=== PATIENT | female | born 1945 | race Caucasian/White ===

== ENCOUNTER 2019-01-11 14:31 | Emergency (ER) | payer MEDICARE, OTHER ==
[~2019-01-11] VITALS: Ht 162.6 cm; Wt 102.5 kg
[~2019-01-11 14:31] MED LIST: ARIP5TAB49 PO; ASPI-1265 PO; CHOL400C8 PO; CYAN-19 PO; DULO60CA34 PO; HYDR-3965 PO; LANS30CA56 PO; LYR75C PO; PRAM0.5T12 PO; TIZA4CAP6 PO
[2019-01-11 15:35] LABS: BASOPHILS # (AUTO) 0.1 X10'3 (0-0.2); BASOPHILS % (AUTO) 0.7 % (0-1); EOSINOPHILS # (AUTO) 0.2 X10'3 (0-0.9); EOSINOPHILS % (AUTO) 2.2 % (0-6); HEMATOCRIT 32.1 % (35.0-45.0); LYMPHOCYTES # (AUTO) 1.9 X10'3 (1.1-4.8); LYMPHOCYTES % (AUTO) 24.7 % (21-51); MEAN CORPUSCULAR HEMOGLOBIN 21.9 PG (27.0-31.0); MEAN CORPUSCULAR HGB CONC 31.1 g/dL (33.0-36.5); MEAN CORPUSCULAR VOLUME 70.3 FL (78-98); MEAN PLATELET VOLUME 7.7 FL (7.4-10.4); MONOCYTES # (AUTO) 0.8 X10'3 (0-0.9); MONOCYTES % (AUTO) 9.8 % (2-12); NEUTROPHILS # (AUTO) 4.8 X10'3 (1.8-7.7); NEUTROPHILS % (AUTO) 62.6 % (42-75); PLATELET COUNT 328 X10'3 (140-440); RED BLOOD COUNT 4.57 X10'6 (4.20-5.60); WHITE BLOOD COUNT 7.7 X10'3 (4.5-11.0)
[2019-01-11 15:38] LABS: PARTIAL THROMBOPLASTIN TIME 26 SECONDS (22-32); PROTHROMBIN TIME 10.4 SECONDS (9.0-12.0)
[2019-01-11 15:40] LABS: ALANINE AMINOTRANSFERASE 21 U/L (12-78); ALBUMIN 3.9 G/DL (3.4-5.0); ALKALINE PHOSPHATASE 87 IU/L (46-116); ANION GAP 10 (8-16); ASPARTATE AMINO TRANSFERASE 11 U/L (10-37); BILIRUBIN,TOTAL 0.8 MG/DL (0.1-1.0); BLOOD UREA NITROGEN 21 MG/DL (7-18); BUN/CREATININE RATIO 19.1 (6.6-38.0); CALCIUM 9.4 MG/DL (8.5-10.1); CHLORIDE 105 MMOL/L (99-107); GLUCOSE 87 MG/DL (70-104); POTASSIUM 4.1 MMOL/L (3.5-5.1); SODIUM 141 MMOL/L (135-145); TOTAL CARBON DIOXIDE 25.9 MMOL/L (24-32); TOTAL PROTEIN 7.9 G/DL (6.4-8.2); eGFR 48 ML/MIN
[2019-01-11 15:50] VITALS: BP 97/44
[2019-01-11] MEDS ORDERED: ipratropium/albuterol 3ml nebule NEB STA (15:54)
[2019-01-11] MEDS ORDERED: ALBU18HF2 INH (16:30)
[2019-01-11] MEDS ORDERED: PRED20TA PO (16:30)
== END 2019-01-11 17:03 | disposition home or self-care (01) ==
LOC: ER 14:31
DX: J06.9 Acute upper respiratory infection, unspecified (principal); G89.29 Other chronic pain; M19.90 Unspecified osteoarthritis, unspecified site; F17.200 Nicotine dependence, unspecified, uncomplicated; Z90.710 Acquired absence of both cervix and uterus; Z79.82 Long term (current) use of aspirin; Z79.899 Other long term (current) drug therapy
CPT/HCPCS: 36415; 71045; 80053; 84484; 85025; 85610; 85730; 93005; 94640; 94760; 99284

== ENCOUNTER 2019-04-17 19:02 | Inpatient (IN) | payer MEDICARE, OTHER ==
[~2019-04-17] VITALS: Ht 162.6 cm; Wt 100.5 kg
[~2019-04-17 19:02] MED LIST changes: +ALBU18HF2 INH
[2019-04-17 19:38] LABS: BASOPHILS # (AUTO) 0.1 X10'3 (0-0.2); BASOPHILS % (AUTO) 0.8 % (0-1); EOSINOPHILS # (AUTO) 0.1 X10'3 (0-0.9); EOSINOPHILS % (AUTO) 1.3 % (0-6); HEMATOCRIT 22.9 % (35.0-45.0); LYMPHOCYTES # (AUTO) 2.1 X10'3 (1.1-4.8); LYMPHOCYTES % (AUTO) 24.2 % (21-51); MEAN CORPUSCULAR HEMOGLOBIN 18.5 PG (27.0-31.0); MEAN CORPUSCULAR HGB CONC 29.9 g/dL (33.0-36.5); MEAN CORPUSCULAR VOLUME 61.8 FL (78-98); MEAN PLATELET VOLUME 7.4 FL (7.4-10.4); MONOCYTES # (AUTO) 0.9 X10'3 (0-0.9); MONOCYTES % (AUTO) 10.6 % (2-12); NEUTROPHILS # (AUTO) 5.4 X10'3 (1.8-7.7); NEUTROPHILS % (AUTO) 63.1 % (42-75); PLATELET COUNT 402 X10'3 (140-440); RED BLOOD COUNT 3.71 X10'6 (4.20-5.60); RED CELL DISTRIBUTION WIDTH 17.7 % (11.5-14.5); WHITE BLOOD COUNT 8.6 X10'3 (4.5-11.0)
[2019-04-17 19:58] LABS: ALANINE AMINOTRANSFERASE 21 U/L (12-78); ALBUMIN 3.7 G/DL (3.4-5.0); ALKALINE PHOSPHATASE 84 IU/L (46-116); ANION GAP 10 (8-16); ASPARTATE AMINO TRANSFERASE 19 U/L (10-37); BILIRUBIN,TOTAL 0.8 MG/DL (0.1-1.0); BLOOD UREA NITROGEN 31 MG/DL (7-18); CALCIUM 9.2 MG/DL (8.5-10.1); CHLORIDE 104 MMOL/L (99-107); CREATININE 1.55 MG/DL (0.40-0.90); GLUCOSE 102 MG/DL (70-104); POTASSIUM 4.2 MMOL/L (3.5-5.1); SODIUM 137 MMOL/L (135-145); TOTAL CARBON DIOXIDE 23.1 MMOL/L (24-32); TOTAL PROTEIN 7.4 G/DL (6.4-8.2); eGFR 33 ML/MIN
[2019-04-17 19:59] LABS: PARTIAL THROMBOPLASTIN TIME 24 SECONDS (22-32)
--- NOTE | 2019-04-17 20:00 | NUR ---
dr wilkins notified of pt's h&h of 6.9 and 22.
[2019-04-17] MEDS ORDERED: nitroGLYCERIN 0.4mg/hour patch TD ONE (20:20)
[2019-04-17] MEDS ORDERED: aspirin 81mg tab.chew PO ONE (20:20)
[2019-04-17 21:04] LABS: PLATELET ESTIMATE NORMAL
[2019-04-17 21:05] LABS: ANISOCYTOSIS 3+; HYPOCHROMASIA 1+; MICROCYTOSIS 2+
[2019-04-17 21:06] LABS: POLYCHROMASIA FEW
[2019-04-17 21:07] LABS: ELLIPTOCYTES 1+
[2019-04-17] MEDS ORDERED: normal saline 1000ml 1,000 ML IV SCH (21:13)
[2019-04-17] MEDS ORDERED: magnesium hydroxide 30ml (MOM) UD suspension PO PRN (21:15)
[2019-04-17] MEDS ORDERED: acetaminophen 325mg tablet PO PRN (21:15)
[2019-04-17] MEDS ORDERED: ondansetron/PF 4mg/2ml inj IV PRN (21:15)
[2019-04-17] MEDS ORDERED: mag hydrox/Alum hydrox/simeth 30ml oral suspension PO PRN (21:15)
--- NOTE | 2019-04-17 21:15 | NUR ---
Received report from Evan RN in ED, will assess patient when she arrives.
[2019-04-17] MEDS ORDERED: FLUO40CA10 PO (21:16)
[2019-04-17] MEDS ORDERED: DEXL60CA3 PO (21:20)
[2019-04-17] MEDS ORDERED: MELO15TA13 PO (21:20)
[2019-04-17] MEDS ORDERED: CARI3CAP PO (21:20)
[2019-04-17] MEDS ORDERED: ALBU18HF2 INH (21:21)
[2019-04-17 21:30] VITALS: BP 140/61
[2019-04-17 21:35] LABS: HEMOGLOBIN A1C 5.4 % (4.5-6.2)
[2019-04-17 22:43] VITALS: BP 144/61
[2019-04-17 22:58] VITALS: BP 115/89
[2019-04-17 23:58] VITALS: BP 129/52
[2019-04-18] VITALS (11 sets, daily range): BP systolic 115–150; BP diastolic 48–89
[2019-04-18] MEDS ORDERED: albuterol 2.5 MG/3 ML nebule NEB PRN
[2019-04-18] MEDS ORDERED: temazepam 15mg capsule PO PRN (02:55)
--- NOTE | 2019-04-18 03:02 | NUR ---
Patient stating severe pain from restless leg syndrome, States takes norco at home. Notified Dr. Nicolas, received order for [place] 5/325 mg 1 tab by mouth every 4 hours as needed for pain. Additionally requested order for Restoril 15 mg QHS PRn for sleep for tomorrow evening. Will continue to monitor.
[2019-04-18] MEDS: HYDROcodone/acetaminophen 5mg/325mg tablet PO PRN ×2 (03:06→13:11)
--- NOTE | 2019-04-18 06:18 | NUR ---
Problems reprioritized. Patient report given, questions answered & plan of care reviewed with Darby OMER. Resting eyes closed respirations even.
--- NOTE | 2019-04-18 06:24 | NUR ---
Patient in room [facility]. I have received report from Carie OMER and had the opportunity to ask questions and assume patient care.
[2019-04-18 06:56] LABS: BASOPHILS % (AUTO) 0.8 % (0-1); EOSINOPHILS # (AUTO) 0.2 X10'3 (0-0.9); EOSINOPHILS % (AUTO) 3.8 % (0-6); HEMATOCRIT 25.8 % (35.0-45.0); LYMPHOCYTES # (AUTO) 1.8 X10'3 (1.1-4.8); LYMPHOCYTES % (AUTO) 31.3 % (21-51); MEAN CORPUSCULAR VOLUME 67.9 FL (78-98); MEAN PLATELET VOLUME 7.3 FL (7.4-10.4); MONOCYTES # (AUTO) 0.6 X10'3 (0-0.9); MONOCYTES % (AUTO) 11.3 % (2-12); NEUTROPHILS % (AUTO) 52.8 % (42-75); PLATELET COUNT 304 X10'3 (140-440); RED CELL DISTRIBUTION WIDTH 23.7 % (11.5-14.5); WHITE BLOOD COUNT 5.7 X10'3 (4.5-11.0)
[2019-04-18 07:08] LABS: ALANINE AMINOTRANSFERASE 20 U/L (12-78); ALBUMIN 3.4 G/DL (3.4-5.0); ALBUMIN/GLOBULIN RATIO 1.1 (1.1-1.5); ALKALINE PHOSPHATASE 75 IU/L (46-116); ANION GAP 6 (8-16); ASPARTATE AMINO TRANSFERASE 16 U/L (10-37); BILIRUBIN,TOTAL 1.6 MG/DL (0.1-1.0); BLOOD UREA NITROGEN 29 MG/DL (7-18); BUN/CREATININE RATIO 23.2 (6.6-38.0); CALCIUM 8.6 MG/DL (8.5-10.1); CHLORIDE 108 MMOL/L (99-107); CREATININE 1.25 MG/DL (0.40-0.90); GLUCOSE 95 MG/DL (70-104); POTASSIUM 4.1 MMOL/L (3.5-5.1); SODIUM 139 MMOL/L (135-145); TOTAL CARBON DIOXIDE 25.5 MMOL/L (24-32); TOTAL PROTEIN 6.6 G/DL (6.4-8.2); eGFR 42 ML/MIN
[2019-04-18 07:12] LABS: CHOL/HDL RATIO 3.6 (0.00-4.99); CHOLESTEROL 83 MG/DL (0-200); HDL CHOLESTEROL 23 MG/DL (35-60); LDL CHOLESTEROL 53 MG/DL (50-100); TRIGLYCERIDES 101 MG/DL (20-135)
[2019-04-18] MEDS: Cariprazine Hydrochloride (Vraylar) 3 MG CAPSULE PO SCH ×2 (08:00→13:10)
[2019-04-18] MEDS ORDERED: pregabalin 75mg capsule PO SCH (08:00)
[2019-04-18] MEDS ORDERED: aspirin 81mg tab.chew PO SCH (08:00)
[2019-04-18] MEDS ORDERED: pantoprazole 40mg Tablet.DR PO SCH (08:00)
[2019-04-18] MEDS ORDERED: FLUoxetine 20mg capsule PO SCH (08:00)
[2019-04-18 10:05] LABS: PLATELET ESTIMATE NORMAL
[2019-04-18 10:06] LABS: ANISOCYTOSIS 3+; ELLIPTOCYTES 1+; HYPOCHROMASIA 2+; MICROCYTOSIS 2+; POLYCHROMASIA 1+
[2019-04-18 10:16] LABS: HEMOGLOBIN 6.9 g/dl (12.0-16.0)
--- NOTE | 2019-04-18 12:59 | NUR ---
Malnutrition consult: Patient's current wt is stable with documented wts from previous visits. Pt currently on clear liquid diet pending PO intake. Pt documented with no edema or decrease in muscle strength. Pt currently does not meet criteria for malnutrition. Will continue to follow. Addendum: 04/18/19 at [address] Amended: Links added.
--- NOTE | 2019-04-18 13:30 | NUR ---
patient seen by DR Bush is for DC. AN hour later 1100 patient c/o chest pain dull in nature. EKG done, unremarkable. No changes observed from telemetry report. VSS. DR Bush informed still good for DC. Patient has sister visiting . DC home via private car with neice in stable condition. 1330hrs. All DC instructions given to patient and sister present.
[2019-04-18] MEDS ORDERED: pramipexole 0.25mg tablet PO SCH (21:00)
== END 2019-04-18 14:15 | disposition home or self-care (01) | DRG 812 ==
LOC: ER 19:02 → SUR 3N 22:05 → CMPBEDREQ 22:07
PROVIDERS: ADMIT Internal Medicine; ATTEND Family Medicine
PROC: 30233N1 Transfusion of Nonautologous Red Blood Cells into Peripheral Vein, Percutaneous Approach (ICD-10-PCS; principal; 2019-04-17)
PROC: 30233N1 Transfusion of Nonautologous Red Blood Cells into Peripheral Vein, Percutaneous Approach (ICD-10-PCS; 2019-04-18)
DX: D50.9 Iron deficiency anemia, unspecified (principal); G25.81 Restless legs syndrome; G47.33 Obstructive sleep apnea (adult) (pediatric); G89.29 Other chronic pain; M19.90 Unspecified osteoarthritis, unspecified site; M54.9 Dorsalgia, unspecified; I25.10 Atherosclerotic heart disease of native coronary artery without angina pectoris; J44.9 Chronic obstructive pulmonary disease, unspecified; K21.9 Gastro-esophageal reflux disease without esophagitis; N18.9 Chronic kidney disease, unspecified; Z85.820 Personal history of malignant melanoma of skin; Z87.891 Personal history of nicotine dependence; Z90.710 Acquired absence of both cervix and uterus; Z79.899 Other long term (current) drug therapy
CPT/HCPCS: 36415; 71045; 80053; 80061; 83036; 84484; 85025; 85610; 85730; 86885; 86900; 86901; 86920; 87070; 93005; 99285; G0378; J7030; P9016

== ENCOUNTER 2019-08-20 16:10 | Observation (INO) | payer MEDICARE, OTHER ==
[2019-08-20] VITALS (7 sets, daily range): BP systolic 104–124; BP diastolic 46–75
[~2019-08-20] VITALS: Ht 162.6 cm; Wt 98.2 kg
[~2019-08-20 16:10] MED LIST changes: -ARIP5TAB49 PO; +CARI3CAP PO; -CHOL400C8 PO; -CYAN-19 PO; +DEXL60CA3 PO; -DULO60CA34 PO; +FLUO40CA10 PO; -HYDR-3965 PO; -LANS30CA56 PO; +MELO15TA13 PO; -TIZA4CAP6 PO
--- NOTE | 2019-08-20 16:56 | NUR ---
RECEIVED ORDERS BY RAQUEL BORGES.
--- NOTE | 2019-08-20 16:57 | NUR ---
CALLED PTS PCP DR. ROSAS, OFFICE CLOSED, NO OPTION FOR ANSWERING SERVICE
[2019-08-20 17:43] LABS: BASOPHILS # (AUTO) 0.1 X10'3 (0-0.2); BASOPHILS % (AUTO) 0.9 % (0-1); EOSINOPHILS # (AUTO) 0.2 X10'3 (0-0.9); EOSINOPHILS % (AUTO) 2.6 % (0-6); LYMPHOCYTES # (AUTO) 1.9 X10'3 (1.1-4.8); LYMPHOCYTES % (AUTO) 25.9 % (21-51); MEAN CORPUSCULAR HEMOGLOBIN 17.7 PG (27.0-31.0); MEAN CORPUSCULAR HGB CONC 29.1 g/dL (33.0-36.5); MONOCYTES # (AUTO) 0.6 X10'3 (0-0.9); MONOCYTES % (AUTO) 8.2 % (2-12); NEUTROPHILS # (AUTO) 4.5 X10'3 (1.8-7.7); NEUTROPHILS % (AUTO) 62.4 % (42-75); PLATELET COUNT 353 X10'3 (140-440); RED CELL DISTRIBUTION WIDTH 18.4 % (11.5-14.5); WHITE BLOOD COUNT 7.2 X10'3 (4.5-11.0)
[2019-08-20 17:45] LABS: PARTIAL THROMBOPLASTIN TIME 23 SECONDS (22-32)
[2019-08-20 17:47] LABS: ALANINE AMINOTRANSFERASE 20 U/L (12-78); ALBUMIN 3.5 G/DL (3.4-5.0); ALBUMIN/GLOBULIN RATIO 0.9 (1.1-1.5); ALKALINE PHOSPHATASE 82 IU/L (46-116); ANION GAP 7 (8-16); ASPARTATE AMINO TRANSFERASE 12 U/L (10-37); BILIRUBIN,TOTAL 0.8 MG/DL (0.1-1.0); BLOOD UREA NITROGEN 19 MG/DL (7-18); BUN/CREATININE RATIO 20.4 (6.6-38.0); CHLORIDE 109 MMOL/L (99-107); CREATININE 0.93 MG/DL (0.40-0.90); GLUCOSE 84 MG/DL (70-104); HEMATOCRIT 20.2 % (35.0-45.0); HEMOGLOBIN 5.9 g/dl (12.0-16.0); POTASSIUM 4.4 MMOL/L (3.5-5.1); SODIUM 143 MMOL/L (135-145); TOTAL CARBON DIOXIDE 26.7 MMOL/L (24-32); TOTAL PROTEIN 7.2 G/DL (6.4-8.2); eGFR 59 ML/MIN
[2019-08-20 19:33] LABS: ANISOCYTOSIS 2+; HYPOCHROMASIA 1+; MICROCYTOSIS 2+; PLATELET ESTIMATE NORMAL
[2019-08-20] MEDS ORDERED: mag hydrox/Alum hydrox/simeth 30ml oral suspension PO PRN (19:40)
[2019-08-20] MEDS ORDERED: ondansetron/PF 4mg/2ml inj IV PRN (19:40)
[2019-08-20] MEDS ORDERED: magnesium hydroxide 30ml (MOM) UD suspension PO PRN (19:40)
[2019-08-20] MEDS ORDERED: acetaminophen 325mg tablet PO PRN ×2 (19:40)
[2019-08-20] MEDS ORDERED: temazepam 15mg capsule PO PRN (21:00)
[2019-08-20] MEDS ORDERED: pramipexole 0.25mg tablet PO SCH (21:00)
[2019-08-20] MEDS: pregabalin 75mg capsule PO SCH (21:39)
[2019-08-20] MEDS: iron polysaccharide complex 150mg capsule PO SCH (21:39)
--- NOTE | 2019-08-20 22:01 | NUR ---
[facility]
[2019-08-21 01:04] LABS: HEMATOCRIT 24.7 % (35.0-45.0); HEMOGLOBIN 7.8 g/dl (12.0-16.0); MEAN CORPUSCULAR HEMOGLOBIN 21.1 PG (27.0-31.0); MEAN CORPUSCULAR HGB CONC 31.4 g/dL (33.0-36.5); MEAN CORPUSCULAR VOLUME 67.1 FL (78-98); MEAN PLATELET VOLUME 7.9 FL (7.4-10.4); PLATELET COUNT 293 X10'3 (140-440); RED BLOOD COUNT 3.69 X10'6 (4.20-5.60); RED CELL DISTRIBUTION WIDTH 25.7 % (11.5-14.5); WHITE BLOOD COUNT 6.9 X10'3 (4.5-11.0)
--- NOTE | 2019-08-21 06:25 | NUR ---
PT RESTING POC IN HOSPITAL BED WITHOUT DISTRESS. LAB HERE MAG DRAW AM LABS.
[2019-08-21 06:44] LABS: BASOPHILS # (AUTO) 0.1 X10'3 (0-0.2); EOSINOPHILS # (AUTO) 0.2 X10'3 (0-0.9); EOSINOPHILS % (AUTO) 3.8 % (0-6); HEMATOCRIT 24.7 % (35.0-45.0); HEMOGLOBIN 7.8 g/dl (12.0-16.0); LYMPHOCYTES # (AUTO) 1.7 X10'3 (1.1-4.8); LYMPHOCYTES % (AUTO) 28.4 % (21-51); MEAN CORPUSCULAR HEMOGLOBIN 21.2 PG (27.0-31.0); MEAN CORPUSCULAR HGB CONC 31.4 g/dL (33.0-36.5); MEAN CORPUSCULAR VOLUME 67.5 FL (78-98); MEAN PLATELET VOLUME 7.8 FL (7.4-10.4); MONOCYTES # (AUTO) 0.6 X10'3 (0-0.9); MONOCYTES % (AUTO) 9.8 % (2-12); NEUTROPHILS # (AUTO) 3.4 X10'3 (1.8-7.7); PLATELET COUNT 292 X10'3 (140-440); RED BLOOD COUNT 3.66 X10'6 (4.20-5.60); RED CELL DISTRIBUTION WIDTH 25.1 % (11.5-14.5); WHITE BLOOD COUNT 5.9 X10'3 (4.5-11.0)
[2019-08-21 06:56] LABS: ALBUMIN 3.2 G/DL (3.4-5.0); ANION GAP 8 (8-16); BLOOD UREA NITROGEN 16 MG/DL (7-18); BUN/CREATININE RATIO 15.1 (6.6-38.0); CALCIUM 8.7 MG/DL (8.5-10.1); CHLORIDE 111 MMOL/L (99-107); CREATININE 1.06 MG/DL (0.40-0.90); GLUCOSE 95 MG/DL (70-104); POTASSIUM 4.6 MMOL/L (3.5-5.1); SODIUM 147 MMOL/L (135-145); TOTAL CARBON DIOXIDE 27.6 MMOL/L (24-32); eGFR 51 ML/MIN
[2019-08-21] MEDS ORDERED: pantoprazole 40mg Tablet.DR PO SCH (07:30)
[2019-08-21 07:34] LABS: ANISOCYTOSIS 3+; MICROCYTOSIS 2+; PLATELET ESTIMATE NORMAL
[2019-08-21 07:36] LABS: POLYCHROMASIA FEW
[2019-08-21 07:38] LABS: HYPOCHROMASIA 1+
[2019-08-21 07:39] LABS: SCHISTOCYTES FEW
[2019-08-21 07:40] LABS: STOMATOCYTES 1+
[2019-08-21] MEDS ORDERED: FLUoxetine 20mg capsule PO SCH (08:00)
--- NOTE | 2019-08-21 09:24 | NUR ---
Per Dr. Belle, labs x6 mo, and most recent visit notes were requested of Dr. Palm's office. MA stated she will be faxing records to [facility], sonu.
[2019-08-21] MEDS: iron polysaccharide complex 150mg capsule PO SCH (09:33)
[2019-08-21] MEDS: pregabalin 75mg capsule PO SCH (09:33)
[2019-08-21 11:41] LABS: RED BLOOD COUNT 3.72 X10'6 (4.20-5.60); RETICULOCYTE % (AUTO) 3.4 % (0.5-1.5)
[2019-08-21 11:46] VITALS: BP 135/55
[2019-08-21 12:02] VITALS: BP 114/58
[2019-08-21 12:22] LABS: % IRON SATURATION 6 % (11-46); IRON 28 UG/DL (49-151); TOTAL IRON BINDING CAPACITY 485 UG/DL (259-388)
[2019-08-21 12:42] LABS: FERRITIN 5 NG/ML (8-252)
[2019-08-21 13:00] VITALS: BP 118/49
[2019-08-21 13:15] VITALS: BP 118/49
[2019-08-21 14:00] VITALS: BP 108/65
--- NOTE | 2019-08-21 18:30 | NUR ---
PT DISCHARGED IN STABLE CONDITION. LEFT FACILITY IN PRIVATE VEHICLE. IV DC CANULA INTACT. ALL BELONGINGS IN HAND. FOLLOW UP INSTRUCTIONS GIVEN, ALL QUESTIONS ANSWERS. Addendum: 08/21/19 at 1830 by Angelita Up RN Amended: Links added.
== END 2019-08-21 17:11 | disposition home or self-care (01) ==
LOC: ER 16:11 → ED HOLD 20:05 → EDBEDREQ 08-21 05:45 → SUR 3N 08-21 08:07
PROVIDERS: ADMIT Hospitalist; ATTEND Internal Medicine
DX: I25.10 Atherosclerotic heart disease of native coronary artery without angina pectoris (principal); J44.9 Chronic obstructive pulmonary disease, unspecified; F17.200 Nicotine dependence, unspecified, uncomplicated; Z85.820 Personal history of malignant melanoma of skin; Z90.710 Acquired absence of both cervix and uterus; Z79.899 Other long term (current) drug therapy
CPT/HCPCS: 36415; 36430; 71045; 80048; 80053; 82728; 83540; 83550; 83735; 83880; 84484; 85025; 85027; 85045; 85610; 85730; 86885; 86900; 86901; 86920; 93005; 99284; G0378; P9016

== ENCOUNTER 2020-08-19 13:21 | Inpatient (IN) | payer MEDICARE, MEDICAID ==
[~2020-08-19] VITALS: Ht 162.6 cm; Wt 99.5 kg
[2020-08-19] VITALS (11 sets, daily range): BP systolic 118–163; BP diastolic 45–113
[~2020-08-19 13:21] MED LIST changes: -ALBU18HF2 INH; -ASPI-1265 PO; -CARI3CAP PO; -MELO15TA13 PO
[2020-08-19] MEDS ORDERED: nitroGLYCERIN 0.4mg SUBLingual tab SL PRN (13:45)
[2020-08-19] MEDS ORDERED: aspirin 81mg tab.chew PO ONE (13:45)
[2020-08-19 14:02] LABS: BASOPHILS % (AUTO) 0.7 % (0-1); EOSINOPHILS # (AUTO) 0.2 X10'3 (0-0.9); EOSINOPHILS % (AUTO) 3.4 % (0-6); HEMATOCRIT 22.9 % (35.0-45.0); LYMPHOCYTES # (AUTO) 1.5 X10'3 (1.1-4.8); LYMPHOCYTES % (AUTO) 21.3 % (21-51); MEAN CORPUSCULAR HEMOGLOBIN 19.6 PG (27.0-31.0); MEAN CORPUSCULAR HGB CONC 29.7 g/dL (33.0-36.5); MEAN PLATELET VOLUME 7.3 FL (7.4-10.4); MONOCYTES # (AUTO) 0.6 X10'3 (0-0.9); MONOCYTES % (AUTO) 8.8 % (2-12); NEUTROPHILS # (AUTO) 4.6 X10'3 (1.8-7.7); NEUTROPHILS % (AUTO) 65.8 % (42-75); PLATELET COUNT 332 X10'3 (140-440); RED BLOOD COUNT 3.46 X10'6 (4.20-5.60); RED CELL DISTRIBUTION WIDTH 18.6 % (11.5-14.5)
[2020-08-19 14:08] LABS: HEMOGLOBIN 6.8 g/dl (12.0-16.0)
[2020-08-19 14:19] LABS: ALANINE AMINOTRANSFERASE 25 U/L (12-78); ALBUMIN 3.5 G/DL (3.4-5.0); ALKALINE PHOSPHATASE 96 IU/L (46-116); ANION GAP 5 (8-16); ASPARTATE AMINO TRANSFERASE 13 U/L (10-37); BILIRUBIN,TOTAL 0.4 MG/DL (0.1-1.0); BLOOD UREA NITROGEN 20 MG/DL (7-18); BUN/CREATININE RATIO 22.5 (6.6-38.0); CALCIUM 8.6 MG/DL (8.5-10.1); CHLORIDE 109 MMOL/L (99-107); CREATININE 0.89 MG/DL (0.40-0.90); GLUCOSE 92 MG/DL (70-104); POTASSIUM 4.3 MMOL/L (3.5-5.1); SODIUM 142 MMOL/L (135-145); TOTAL CARBON DIOXIDE 27.7 MMOL/L (24-32); eGFR 62 ML/MIN
[2020-08-19 14:37] LABS: OCCULT BLOOD STOOL NEGATIVE (Neg)
[2020-08-19] MEDS ORDERED: ondansetron/PF 4mg/2ml inj IV PRN (14:50)
[2020-08-19] MEDS ORDERED: metoclopramide 5 mg/ml inj IV PRN (14:50)
[2020-08-19] MEDS ORDERED: mag hydrox/Alum hydrox/simeth 30ml oral suspension PO PRN (14:50)
[2020-08-19] MEDS ORDERED: magnesium hydroxide 30ml (MOM) UD suspension PO PRN (14:50)
[2020-08-19] MEDS ORDERED: morphine 2 MG/ML inj. syringe IV PRN ×2 (14:50)
[2020-08-19] MEDS ORDERED: acetaminophen 325mg tablet PO PRN ×2 (14:50)
[2020-08-19] MEDS ORDERED: MAGN400C PO (15:03)
[2020-08-19] MEDS ORDERED: ASPI-611 PO (15:03)
[2020-08-19] MEDS ORDERED: ROPI2TAB7 PO (15:03)
[2020-08-19] MEDS ORDERED: HYDR-3972 PO (15:03)
[2020-08-19] MEDS ORDERED: HYDROcodone/acetaminophen 10/325mg tab PO PRN (15:10)
[2020-08-19] MEDS: pregabalin 75mg capsule PO SCH ×2 (15:46→23:39)
[2020-08-19] MEDS: normal saline 1000ml 1,000 ML IV SCH (15:55)
[2020-08-19 16:12] LABS: ANISOCYTOSIS 2+; HYPOCHROMASIA 1+; MICROCYTOSIS 2+; PLATELET ESTIMATE NORMAL; POLYCHROMASIA FEW
--- NOTE | 2020-08-19 16:36 | NUR ---
Received report from ED. pt to have blood consent and UA order complete proir to transfer to floor. Blood ready in blood bank when consents complete. Awaiting arrival of Pt to [address].
--- NOTE | 2020-08-19 16:45 | NUR ---
Received pt via wc from ED. admitted to room 340B. Pt prepped for blood transfusion. Bed low, call light in reach. Discussed POC, pt verbalizes understanding.
--- NOTE | 2020-08-19 18:44 | NUR ---
Problems reprioritized. Patient report given, questions answered & plan of care reviewed with NEGRA Petit.
[2020-08-19] MEDS: FLUoxetine 20mg capsule PO SCH (20:24)
[2020-08-19] MEDS: pantoprazole 40 MG vial IV SCH (20:24)
[2020-08-19] MEDS ORDERED: ROPINIRole 1mg tablet PO SCH (21:00)
[2020-08-20] VITALS (10 sets, daily range): BP systolic 129–157; BP diastolic 53–83
[2020-08-20] MEDS: normal saline 1000ml 1,000 ML IV SCH ×2 (00:50→10:50)
[2020-08-20 05:17] LABS: BASOPHILS % (AUTO) 0.7 % (0-1); EOSINOPHILS # (AUTO) 0.3 X10'3 (0-0.9); EOSINOPHILS % (AUTO) 4.2 % (0-6); HEMATOCRIT 26.6 % (35.0-45.0); HEMOGLOBIN 8.3 g/dl (12.0-16.0); LYMPHOCYTES # (AUTO) 2.2 X10'3 (1.1-4.8); LYMPHOCYTES % (AUTO) 35.8 % (21-51); MEAN CORPUSCULAR HEMOGLOBIN 22.2 PG (27.0-31.0); MEAN CORPUSCULAR HGB CONC 31.4 g/dL (33.0-36.5); MEAN CORPUSCULAR VOLUME 70.7 FL (78-98); MEAN PLATELET VOLUME 7.8 FL (7.4-10.4); MONOCYTES # (AUTO) 0.7 X10'3 (0-0.9); MONOCYTES % (AUTO) 11.5 % (2-12); NEUTROPHILS # (AUTO) 2.9 X10'3 (1.8-7.7); NEUTROPHILS % (AUTO) 47.8 % (42-75); PLATELET COUNT 268 X10'3 (140-440); RED BLOOD COUNT 3.76 X10'6 (4.20-5.60); RED CELL DISTRIBUTION WIDTH 21.3 % (11.5-14.5)
[2020-08-20 05:28] LABS: ALBUMIN 3.3 G/DL (3.4-5.0); ANION GAP 6 (8-16); BLOOD UREA NITROGEN 17 MG/DL (7-18); BUN/CREATININE RATIO 17.2 (6.6-38.0); CALCIUM 8.8 MG/DL (8.5-10.1); CHLORIDE 109 MMOL/L (99-107); CREATININE 0.99 MG/DL (0.40-0.90); GLUCOSE 91 MG/DL (70-104); POTASSIUM 4.2 MMOL/L (3.5-5.1); SODIUM 145 MMOL/L (135-145); TOTAL CARBON DIOXIDE 29.7 MMOL/L (24-32); eGFR 55 ML/MIN
--- NOTE | 2020-08-20 06:10 | NUR ---
Patient in room [facility]. I have received report from NEGRA Petit and had the opportunity to ask questions and assume patient care.
--- NOTE | 2020-08-20 06:44 | NUR ---
Problems reprioritized. Patient report given, questions answered & plan of care reviewed with DAVE RN.
[2020-08-20] MEDS ORDERED: pantoprazole 40mg Tablet.DR PO SCH ×2 (08:00→20:00)
[2020-08-20] MEDS ORDERED: magnesium oxide 400mg tablet PO SCH (08:00)
[2020-08-20] MEDS ORDERED: fentaNYL/PF 50MCG/1 ML 2ML syringe ONE (08:52)
[2020-08-20] MEDS ORDERED: MIDAZolam 5mg/5ml vial ONE (08:52)
[2020-08-20] MEDS ORDERED: LIDOcaine Viscous 15ml cup ONE (08:52)
[2020-08-20] MEDS: pregabalin 75mg capsule PO SCH ×2 (11:24→15:29)
[2020-08-20] MEDS: FLUoxetine 20mg capsule PO SCH (11:25)
[2020-08-20] MEDS: pantoprazole 40 MG vial IV SCH (11:35)
--- NOTE | 2020-08-20 16:05 | NUR ---
DC inst provided to pt. IV DC'd, tip intact. All belongings sent w/pt. WC to front lobby.
== END 2020-08-20 15:05 | disposition home health service (06) | DRG 812 ==
LOC: ER 13:21 → ED HOLD 14:50 → SUR 3N 16:49
PROVIDERS: ADMIT Internal Medicine; ATTEND Internal Medicine
PROC: 30233N1 Transfusion of Nonautologous Red Blood Cells into Peripheral Vein, Percutaneous Approach (ICD-10-PCS; principal; 2020-08-19)
PROC: 0DB68ZX Excision of Stomach, Via Natural or Artificial Opening Endoscopic, Diagnostic (ICD-10-PCS; 2020-08-20)
PROC: 0D598ZZ Destruction of Duodenum, Via Natural or Artificial Opening Endoscopic (ICD-10-PCS; 2020-08-20)
DX: D50.9 Iron deficiency anemia, unspecified (principal); K31.819 Angiodysplasia of stomach and duodenum without bleeding; K29.70 Gastritis, unspecified, without bleeding; G25.81 Restless legs syndrome; I25.10 Atherosclerotic heart disease of native coronary artery without angina pectoris; J44.9 Chronic obstructive pulmonary disease, unspecified; K21.9 Gastro-esophageal reflux disease without esophagitis; F32.9 Major depressive disorder, single episode, unspecified; G89.29 Other chronic pain; M19.90 Unspecified osteoarthritis, unspecified site; M54.9 Dorsalgia, unspecified; F17.210 Nicotine dependence, cigarettes, uncomplicated; K44.9 Diaphragmatic hernia without obstruction or gangrene; Z79.82 Long term (current) use of aspirin; Z79.899 Other long term (current) drug therapy; Z90.710 Acquired absence of both cervix and uterus; Z83.3 Family history of diabetes mellitus; Z82.49 Family history of ischemic heart disease and other diseases of the circulatory system
CPT/HCPCS: 36415; 36430; 43239; 71045; 80048; 80053; 82272; 83880; 84484; 85008; 85025; 86885; 86900; 86901; 86920; 87081; 93005; 96360; 99152; 99285; A4620; C9113; G0378; J2250; J3010; J7030; J7040; P9016

== ENCOUNTER 2021-02-27 11:11 | Emergency (ER) | payer OTHER, MEDICAID ==
[~2021-02-27] VITALS: Ht 162.6 cm; Wt 100.0 kg
[~2021-02-27 11:11] MED LIST changes: +HYDR-3972 PO; +MAGN400C PO; -PRAM0.5T12 PO; +ROPI2TAB7 PO
[2021-02-27] MEDS ORDERED: methylPREDNISolone sod succ 125mg/2ml vial IV ONE (11:20)
[2021-02-27] MEDS ORDERED: ipratropium/albuterol 3ml nebule NEB ONE (11:20)
[2021-02-27] MEDS ORDERED: aspirin 81mg tab.chew PO ONE (11:20)
[2021-02-27] MEDS ORDERED: nitroGLYCERIN 0.4mg SUBLingual tab SL PRN (11:20)
[2021-02-27 11:57] LABS: BASOPHILS # (AUTO) 0.1 X10'3 (0-0.2); EOSINOPHILS # (AUTO) 0.3 X10'3 (0-0.9); HEMOGLOBIN 9.3 g/dl (12.0-16.0); MEAN PLATELET VOLUME 7.7 FL (7.4-10.4); RED CELL DISTRIBUTION WIDTH 17.4 % (11.5-14.5); WHITE BLOOD COUNT 7.3 X10'3 (4.5-11.0)
[2021-02-27 11:59] LABS: BASOPHILS % (AUTO) 1.1 % (0-1); EOSINOPHILS % (AUTO) 3.6 % (0-6); HEMATOCRIT 29.9 % (35.0-45.0); LYMPHOCYTES # (AUTO) 1.2 X10'3 (1.1-4.8); LYMPHOCYTES % (AUTO) 16.7 % (21-51); MEAN CORPUSCULAR HEMOGLOBIN 22.8 PG (27.0-31.0); MEAN CORPUSCULAR VOLUME 73.7 FL (78-98); MONOCYTES # (AUTO) 0.7 X10'3 (0-0.9); MONOCYTES % (AUTO) 9.8 % (2-12); NEUTROPHILS % (AUTO) 68.8 % (42-75); PLATELET COUNT 291 X10'3 (140-440); RED BLOOD COUNT 4.06 X10'6 (4.20-5.60)
[2021-02-27 12:11] LABS: ALANINE AMINOTRANSFERASE 40 U/L (12-78); ALBUMIN 3.7 G/DL (3.4-5.0); ALKALINE PHOSPHATASE 101 IU/L (46-116); ANION GAP 9 (8-16); ASPARTATE AMINO TRANSFERASE 23 U/L (10-37); BILIRUBIN,TOTAL 0.5 MG/DL (0.1-1.0); BLOOD UREA NITROGEN 15 MG/DL (7-18); CALCIUM 8.9 MG/DL (8.5-10.1); CHLORIDE 106 MMOL/L (99-107); CREATININE 0.94 MG/DL (0.40-0.90); GLUCOSE 93 MG/DL (70-104); POTASSIUM 4.5 MMOL/L (3.5-5.1); SODIUM 143 MMOL/L (135-145); TOTAL CARBON DIOXIDE 28.4 MMOL/L (24-32); TOTAL PROTEIN 7.4 G/DL (6.4-8.2); eGFR 58 ML/MIN
[2021-02-27] MEDS ORDERED: furosemide 10 MG/1 ML 10ml inj IV ONE (12:25)
[2021-02-27] MEDS ORDERED: nitroGLYCERIN 1gm ointment UD TP ONE (12:30)
[2021-02-27] MEDS ORDERED: IBUP-1985 PO (13:23)
[2021-02-27] MEDS ORDERED: magnesium Cl slow-release 64mg tablet PO PRN (14:00)
[2021-02-27] MEDS ORDERED: potassium Cl 20 mEq SR tablet PO PRN ×2 (14:00)
[2021-02-27] MEDS ORDERED: ondansetron/PF 4mg/2ml inj IV PRN (14:00)
[2021-02-27] MEDS ORDERED: acetaminophen 325mg tablet PO PRN (14:00)
[2021-02-27] MEDS ORDERED: magnesium 4gm in 100ml NS 100 ML IV PRN (14:00)
[2021-02-27] MEDS ORDERED: potassium Cl 40MEQ/1/2NS 520ml 520 ML IV PRN ×2 (14:00)
[2021-02-27] MEDS ORDERED: magnesium 2GM in 50ml NS 50 ML IV PRN (14:00)
[2021-02-27 16:31] VITALS: BP 149/79
--- NOTE | 2021-02-27 17:58 | NUR ---
PT WAS SEEN LEAVING BY NEGRA STOCKTON. STATED THAT PT APPEARED ANGRY. IV WAS REMOVED BY RN. PT WAS CALLED, SPOKE WITH DAUGHTER AND INFORMED THAT THE PT HAD ELOPED. DAUGHTER SAID SHE WOULD TRY TO GET THE PT BACK FOR SCHEDULED ADMISSION
[2021-02-27] MEDS ORDERED: K and/or MAG REPLACEMENT MC SCH (20:00)
[2021-02-27] MEDS ORDERED: furosemide 10 MG/1 ML 10ml inj IV SCH (20:00)
== END 2021-02-27 18:02 | disposition left against medical advice (07) ==
LOC: ER 11:12 → UNDOADMIN 13:59 → ED HOLD 13:59 → UNDODISIN 18:33
DX: I11.0 Hypertensive heart disease with heart failure (principal); I50.9 Heart failure, unspecified; Z20.822 Contact with and (suspected) exposure to COVID-19; J44.9 Chronic obstructive pulmonary disease, unspecified; R06.89 Other abnormalities of breathing; I25.10 Atherosclerotic heart disease of native coronary artery without angina pectoris; M19.90 Unspecified osteoarthritis, unspecified site; G89.29 Other chronic pain; Z90.710 Acquired absence of both cervix and uterus; Z98.890 Other specified postprocedural states; Z79.899 Other long term (current) drug therapy
CPT/HCPCS: 36415; 71045; 80053; 83880; 84484; 85025; 87635; 93005; 94640; 96374; 96375; 99285; C9803; J1940; J2930; 94760; G0378

== ENCOUNTER 2021-03-01 14:28 | Outpatient (CLI) | payer OTHER, MEDICAID ==
[~2021-03-01 14:28] MED LIST changes: +IBUP-1985 PO; -MAGN400C PO
[2021-03-01 16:12] LABS: BASOPHILS # (AUTO) 0.1 X10'3 (0-0.2); BASOPHILS % (AUTO) 0.8 % (0-1); EOSINOPHILS # (AUTO) 0.3 X10'3 (0-0.9); EOSINOPHILS % (AUTO) 3.3 % (0-6); LYMPHOCYTES # (AUTO) 1.9 X10'3 (1.1-4.8); LYMPHOCYTES % (AUTO) 21.5 % (21-51); MEAN CORPUSCULAR VOLUME 74.2 FL (78-98); MEAN PLATELET VOLUME 7.6 FL (7.4-10.4); MONOCYTES # (AUTO) 0.8 X10'3 (0-0.9); MONOCYTES % (AUTO) 9.3 % (2-12); NEUTROPHILS # (AUTO) 5.7 X10'3 (1.8-7.7); NEUTROPHILS % (AUTO) 65.1 % (42-75); PRE OP HEMATOCRIT 29.8 % (35.0-45.0); PRE OP PLATELET COUNT 338 X10'3 (140-440); RED BLOOD COUNT 4.01 X10'6 (4.20-5.60); RED CELL DISTRIBUTION WIDTH 17.7 % (11.5-14.5)
[2021-03-01 16:14] LABS: PRE OP HEMOGLOBIN 9.2 g/dL (12.0-16.0)
[2021-03-01 16:23] LABS: ALBUMIN 3.7 G/DL (3.4-5.0); ALKALINE PHOSPHATASE 94 IU/L (46-116); BLOOD UREA NITROGEN 24 MG/DL (7-18); CALCIUM 8.5 MG/DL (8.5-10.1); CHLORIDE 104 MMOL/L (99-107); CREATININE 0.89 MG/DL (0.40-0.90); PRE OP ALT 27 U/L (30-65); PRE OP ANION GAP 8 (8-16); PRE OP AST 14 U/L (10-37); PRE OP BILIRUB, TOTAL 0.5 MG/DL (0.0-1.0); PRE OP GLUCOSE 85 MG/DL (70-104); PRE OP POTASSIUM 4.2 MMOL/L (3.4-5.1); PRE OP SODIUM 142 MMOL/L (135-145); TOTAL CARBON DIOXIDE 30.2 MMOL/L (24-32); TOTAL PROTEIN 7.3 G/DL (6.4-8.2); eGFR 62 ML/MIN
== END 2021-03-01 23:59 | disposition home or self-care (01) ==
LOC: PRE-OP 14:28 → EDSTATUS 03-11 14:15
PROVIDERS: ATTEND Podiatrist Foot & Ankle Surgery
DX: Z01.818 Encounter for other preprocedural examination (principal); M79.671 Pain in right foot; M19.071 Primary osteoarthritis, right ankle and foot; M20.11 Hallux valgus (acquired), right foot; M20.21 Hallux rigidus, right foot; Z72.0 Tobacco use
CPT/HCPCS: 36415; 80053; 85025; 93005

== ENCOUNTER 2021-06-17 05:23 | Day surgery (SDC) | payer OTHER, MEDICAID ==
[2021-06-07 16:29] LABS: BASOPHILS # (AUTO) 0.1 X10'3 (0-0.2); EOSINOPHILS # (AUTO) 0.3 X10'3 (0-0.9); EOSINOPHILS % (AUTO) 4.3 % (0-6); LYMPHOCYTES # (AUTO) 1.9 X10'3 (1.1-4.8); LYMPHOCYTES % (AUTO) 27.6 % (21-51); MEAN CORPUSCULAR HEMOGLOBIN 22.2 PG (27.0-31.0); MEAN CORPUSCULAR HGB CONC 31.4 g/dL (33.0-36.5); MEAN CORPUSCULAR VOLUME 70.8 FL (78-98); MEAN PLATELET VOLUME 7.5 FL (7.4-10.4); MONOCYTES # (AUTO) 0.6 X10'3 (0-0.9); MONOCYTES % (AUTO) 9.2 % (2-12); NEUTROPHILS % (AUTO) 57.9 % (42-75); PRE OP HEMATOCRIT 26.3 % (35.0-45.0); PRE OP PLATELET COUNT 352 X10'3 (140-440); RED BLOOD COUNT 3.72 X10'6 (4.20-5.60); RED CELL DISTRIBUTION WIDTH 18.7 % (11.5-14.5)
[2021-06-07 16:37] LABS: PRE OP HEMOGLOBIN 8.3 g/dL (12.0-16.0)
[2021-06-07 16:40] LABS: ALBUMIN 3.5 G/DL (3.4-5.0); ALKALINE PHOSPHATASE 73 IU/L (46-116); BLOOD UREA NITROGEN 20 MG/DL (7-18); BUN/CREATININE RATIO 15.4 (6.6-38.0); CALCIUM 8.2 MG/DL (8.5-10.1); CHLORIDE 109 MMOL/L (99-107); PRE OP ALT 20 U/L (30-65); PRE OP ANION GAP 10 (8-16); PRE OP AST 15 U/L (10-37); PRE OP BILIRUB, TOTAL 0.3 MG/DL (0.0-1.0); PRE OP GLUCOSE 82 MG/DL (70-104); PRE OP POTASSIUM 4.2 MMOL/L (3.4-5.1); PRE OP SODIUM 146 MMOL/L (135-145); TOTAL PROTEIN 6.9 G/DL (6.4-8.2); eGFR 40 ML/MIN
[2021-06-07 18:23] LABS: LARGE PLATELETS FEW; PLATELET ESTIMATE NORMAL; POLYCHROMASIA FEW
[2021-06-07 18:24] LABS: ANISOCYTOSIS 2+; ELLIPTOCYTES FEW; HYPOCHROMASIA 1+; MICROCYTOSIS 2+; STOMATOCYTES 1+
[2021-06-17] VITALS (16 sets, daily range): BP systolic 109–154; BP diastolic 58–76
[~2021-06-17] VITALS: Ht 162.6 cm; Wt 96.0 kg
[~2021-06-17 05:23] MED LIST changes: -HYDR-3972 PO; +ringers solution, lacted 1,000 ML IV SCH
[2021-06-17] MEDS ORDERED: cefazolin/dext.iso 2gm/100ml IV ONE (05:30)
[2021-06-17] MEDS ORDERED: albuterol 2.5 MG/3 ML nebule NEB ONE (05:30)
[2021-06-17] MEDS ORDERED: famotidine 20mg tablet PO ONE (05:30)
[2021-06-17 06:23] LABS: ISTAT HGB 9.2 g/dl (12.0-16.0); ISTAT IONIZED CALCIUM 1.23 mmol/L (1.03-1.32); ISTAT K 4.2 mmol/L (3.5-5.1)
[2021-06-17] MEDS ORDERED: midazolam 1 mg/ML 2ml injection ONE (07:00)
[2021-06-17] MEDS ORDERED: fentaNYL /PF 50mcg/ml 5ml ampule ONE (07:00)
[2021-06-17] MEDS ORDERED: ondansetron/PF 4mg/2ml inj ONE (07:01)
[2021-06-17] MEDS ORDERED: LIDOcaine 2% (20mg/ml) 5ml vial ONE (07:01)
[2021-06-17] MEDS ORDERED: propofol inj 20 ML IV ONE (07:01)
[2021-06-17] MEDS ORDERED: ROPIVAcaine 0.5% (5mg/ml) 30ml vial ONE (07:01)
[2021-06-17] MEDS ORDERED: dexamethasone sod phosphate 4mg/ml inj. ONE (07:01)
[2021-06-17] MEDS ORDERED: HYDR-3972 PO (07:02)
[2021-06-17] MEDS ORDERED: sevoflurane 250ml liquid IH ONE (07:08)
[2021-06-17] MEDS ORDERED: dexmedetomidine 200mcg/2ml inj. IV ONE (07:08)
[2021-06-17] MEDS ORDERED: bacitracin 15gm ointment TP ONE (07:09)
[2021-06-17] MEDS ORDERED: BUPIVAcaine 0.5% inj/PF 30 ML ONE (07:09)
[2021-06-17] MEDS ORDERED: ePHEDrine 50MG/ML INJ. ONE (07:38)
[2021-06-17] MEDS ORDERED: fentaNYL/PF 50MCG/1 ML 2ML syringe ONE (07:42)
[2021-06-17] MEDS ORDERED: acetaminophen 1,000mg/100ml IV 100 ML IV ONE (07:44)
[2021-06-17] MEDS ORDERED: hydrALAZINE 20mg/ml inj. IV PRN (07:50)
[2021-06-17] MEDS ORDERED: labetalol 20mg/4ml (5mg/ml) syringe IV PRN (07:50)
[2021-06-17] MEDS ORDERED: morphine 4 MG/ML inj SYRINge IV PRN (07:50)
[2021-06-17] MEDS ORDERED: morphine 2 MG/ML inj. syringe IV PRN (07:50)
[2021-06-17] MEDS ORDERED: fentaNYL/PF 50MCG/1 ML 2ML syringe IV PRN ×2 (07:50)
[2021-06-17] MEDS ORDERED: ondansetron/PF 4mg/2ml inj IV PRN (07:50)
[2021-06-17] MEDS ORDERED: ringers solution, lacted 1,000 ML IV SCH (07:50)
--- NOTE | 2021-06-17 08:22 | NUR ---
Received from OR via [facility], accompanied by Anesthesiologist DR HERNÁNDEZ and report given by Anesthesiologist. PT VERY DROWSY, NO S/S OF DISTRESS/DISCOMFORT. RIGHT LEG W/WALKING BOOT ON AND IN PLACE, DEMETRIUS WRAP COVERING INCISION/DRSG FROM TOES TO BELOW KNEE CDI. REED REPAIRER 1-2 SECONDS, TOES PWD. Addendum: 06/17/21 at 0835 by Felisa Castano RN Amended: Links added.
--- NOTE | 2021-06-17 11:02 | NUR ---
PT AWAKE AND ALERT, IS ABLE TO PIVOT SAFELY FROM BED TO BSC FOR VOID, THEN BACK TO BED, DRESSED, PT PIVOTS TO W/C SAFELY. D/C INSTRUCTIONS GIVEN AND GONE OVER W/PT AND PTS DAUGHTER WHO VERBALIZED UNDERSTANDING, PT D/CD TO HOME VIA W/C TO PRIVATE VEHICLE W/O INCIDENT. Addendum: 06/17/21 at 1136 by Felisa Castano RN Amended: Links added.
== END 2021-06-17 11:02 | disposition home or self-care (01) ==
LOC: PRE-OP 05:23
PROVIDERS: ATTEND Podiatrist Foot & Ankle Surgery
DX: M20.21 Hallux rigidus, right foot (principal); M19.071 Primary osteoarthritis, right ankle and foot; F17.210 Nicotine dependence, cigarettes, uncomplicated; J44.9 Chronic obstructive pulmonary disease, unspecified; G89.29 Other chronic pain; I25.10 Atherosclerotic heart disease of native coronary artery without angina pectoris; E66.9 Obesity, unspecified; Z68.36 Body mass index [BMI] 36.0-36.9, adult; Z20.822 Contact with and (suspected) exposure to COVID-19; Z85.828 Personal history of other malignant neoplasm of skin; Z90.710 Acquired absence of both cervix and uterus; Z98.890 Other specified postprocedural states; Z79.899 Other long term (current) drug therapy; Z83.3 Family history of diabetes mellitus; Z82.49 Family history of ischemic heart disease and other diseases of the circulatory system
CPT/HCPCS: 28750; 36415; 73620; 76000; 80047; 80053; 85025; A6222; A6223; C1713; J0131; J1100; J2001; J2250; J2405; J2704; J3010; L4360; U0003; U0005; Z7506; Z7508; Z7512; 85008; A4215; A4618; A6253; A6449; A7000; J2795; J3490; J7120

== ENCOUNTER 2024-12-21 21:55 | Emergency (ER) | payer MEDICAID, MEDICARE, OTHER ==
[~2024-12-21] VITALS: Ht 162.6 cm; Wt 100.0 kg
[~2024-12-21 21:55] MED LIST changes: +HYDR-3972 PO; +ROPI2TAB53 PO; -ROPI2TAB7 PO; -ringers solution, lacted 1,000 ML IV SCH
[2024-12-21 22:57] LABS: BASOPHILS # (AUTO) 0.1 X10'3 (0-0.2); BASOPHILS % (AUTO) 0.7 % (0-1); EOSINOPHILS # (AUTO) 0.3 X10'3 (0-0.9); EOSINOPHILS % (AUTO) 3.5 % (0-6); HEMATOCRIT 35.4 % (35.0-45.0); HEMOGLOBIN 11.4 g/dl (12.0-16.0); LYMPHOCYTES # (AUTO) 2.1 X10'3 (1.1-4.8); LYMPHOCYTES % (AUTO) 24.3 % (21-51); MEAN CORPUSCULAR HEMOGLOBIN 23.9 PG (27.0-31.0); MEAN CORPUSCULAR HGB CONC 32.1 g/dL (33.0-36.5); MEAN CORPUSCULAR VOLUME 74.7 FL (78-98); MEAN PLATELET VOLUME 7.6 FL (7.4-10.4); MONOCYTES # (AUTO) 0.7 X10'3 (0-0.9); MONOCYTES % (AUTO) 8.4 % (2-12); NEUTROPHILS # (AUTO) 5.4 X10'3 (1.8-7.7); NEUTROPHILS % (AUTO) 63.1 % (42-75); PLATELET COUNT 339 X10'3 (140-440); RED BLOOD COUNT 4.75 X10'6 (4.20-5.60); RED CELL DISTRIBUTION WIDTH 17.3 % (11.5-14.5); WHITE BLOOD COUNT 8.6 X10'3 (4.5-11.0)
[2024-12-21 23:12] LABS: ALANINE AMINOTRANSFERASE 37 U/L (12-78); ALBUMIN 3.7 G/DL (3.4-5.0); ALKALINE PHOSPHATASE 123 IU/L (46-116); ANION GAP 5 (8-16); ASPARTATE AMINO TRANSFERASE 17 U/L (10-37); BILIRUBIN,TOTAL 0.4 MG/DL (0.1-1.0); BLOOD UREA NITROGEN 20 MG/DL (7-18); BUN/CREATININE RATIO 18.5 (10.0-20.0); CALCIUM 9.4 MG/DL (8.5-10.1); CHLORIDE 108 MMOL/L (99-107); CREATININE 1.08 MG/DL (0.40-0.90); GLUCOSE 119 MG/DL (70-104); POTASSIUM 4.4 MMOL/L (3.5-5.1); SODIUM 145 MMOL/L (135-145); TOTAL CARBON DIOXIDE 31.9 MMOL/L (24-32); TOTAL PROTEIN 7.3 G/DL (6.4-8.2); eCRCL 35 ML/MIN; eGFR 49 ML/MIN
[2024-12-21 23:21] LABS: PRO BRAIN NATRIURETIC PEPTIDE 43 PG/ML (0-450)
[2024-12-22 00:17] VITALS: TEMP 98.2
[2024-12-22 00:38] LABS: BILIRUBIN,URINE NEGATIVE (Neg); CLARITY,URINE CLEAR (Clear); COLOR,URINE YELLOW (Yellow); GLUCOSE, URINE NEGATIVE (Neg); KETONES,URINE NEGATIVE (Neg); LEUKOCYTE ESTERASE ,URINE TRACE (Neg); NITRITES, URINE POSITIVE (Neg); OCCULT BLOOD,URINE NEGATIVE (Neg); PH,URINE 5.5 (4.8-8.0); PROTEIN,URINE NEGATIVE (Neg); UROBILINOGEN,URINE 0.2 E.U/dL (0.2-1.0)
[2024-12-22 00:39] LABS: D-DIMER 0.25 MG/L FEU (0-0.50)
[2024-12-22 00:44] LABS: UA COLLECTION TYPE CLN CATCH MIDSTREAM
[2024-12-22 00:45] LABS: BACTERIA,URINE 4+ /HPF (Neg); RBC,URINE NONE SEEN /HPF (0-2); SQUAMOUS EPITHELIAL CELL,UR FEW /LPF (FEW)
[2024-12-22] MEDS ORDERED: PRED20TA PO (00:52)
[2024-12-22] MEDS ORDERED: CEFU250T95 PO (00:57)
[2024-12-22] MEDS: predniSONE 20 mg tablet PO ONE (01:08)
[2024-12-22] MEDS: cephalexin 250mg capsule PO ONE (01:08)
[2024-12-22 01:25] VITALS: PULSE 101; RESP 16; O2SAT 93
[2024-12-22] MEDS: ipratropium/albuterol 3ml nebule NEB ONE (01:25)
[2024-12-22 01:31] VITALS: PULSE 91; RESP 16
[2024-12-22 01:58] VITALS: BP 115/101; PULSE 107; RESP 16; O2SAT 96
== END 2024-12-22 01:53 | disposition home or self-care (01) ==
LOC: ER 21:56
DX: N39.0 Urinary tract infection, site not specified (principal); Z20.822 Contact with and (suspected) exposure to COVID-19; J44.1 Chronic obstructive pulmonary disease with (acute) exacerbation; M19.90 Unspecified osteoarthritis, unspecified site; I25.10 Atherosclerotic heart disease of native coronary artery without angina pectoris; G89.29 Other chronic pain; Z79.2 Long term (current) use of antibiotics; Z79.899 Other long term (current) drug therapy; Z90.710 Acquired absence of both cervix and uterus
CPT/HCPCS: 36415; 71045; 80053; 81001; 83880; 84145; 84484; 85025; 85379; 87088; 87502; 87503; 87811; 93005; 94640; 99285; J7512; 87186; 94760